=== PATIENT | female | born 1960 | race Caucasian/White ===

== ENCOUNTER 2023-02-23 20:06 | Emergency (ER) | payer OTHER ==
[2023-02-23 20:33] VITALS: TEMP 97.9
[2023-02-23] MEDS ORDERED: Sodium Chloride 0.9% 1000 ML 1,000 ML IV STA (20:49)
[2023-02-23] MEDS ORDERED: Zofran 4 MG/2 ML VIAL IV ONE (20:51)
[2023-02-23] MEDS ORDERED: SUBLIMAZE 100 MCG/2 ML IV ONE ×2 (20:51→22:04)
--- NOTE | 2023-02-23 20:55 | ERPHSYRPT ---
- History of Present Illness Time Seen by Provider: 02/23/23 20:09 Source: patient Exam Limitations: no limitations Patient Subjective Stated Complaint: cough, sob, aching, fatigue, headache, diarrhea Triage Nursing Assessment: pt ambulated into ER without diff. Pt c/o cough with thick green sputum, sob, headache, fatigue and body aches, diarrhea. This all started saturday but has gotten worse by today. Pt drove herself here to ER. Lungs clear, heart tones reg. No edema noted. Physician History: 62 years old female with history of tobacco abuse, COPD presented in the ER with chief complaint of flulike symptoms with cough congestion, body aches, fatigue tiredness and feeling dehydrated from multiple episodes of loose stool for over a week with associated lower abdominal pain moderate intensity with some q uestionable distention. Patient denies any chest pain or shortness of breath, has shortness of breath at her baseline which is not any worse than usual. Cough productive of yellow-green sputum moderate in amount. Denies any known sick contact. Patient reports she is not able to hold much down and feels dehydrated. Allergies/Adverse Reactions: No Known Drug Allergies Allergy (Unverified 02/23/23 20:33) Home Medications: ALPRAZolam 1 MG [Xanax 1 mg] 1 tab PO TID 02/23/23 [History] Ropinirole HCl 0.5 mg [Requip 0.5 MG] 1 - 2 tab PO HS 02/23/23 [History] Topiramate 25 mg PO BID 02/23/23 [History] Trazodone HCl 50 mg [Desyrel 50 mg] 1 tab PO DAILY 02/23/23 [History] buPROPion HCL [Wellbutrin Xl] 150 mg PO DAILY 02/23/23 [History] Hx Tetanus, Diphtheria Vaccination/Date Given: No Hx Influenza Vaccination/Date Given: No Hx Pneumococcal Vaccination/Date Given: No Immunizations Up to Date: No Travel Risk - International Travel Have you traveled outside of the country in past 3 weeks: No - Coronavirus Screening Are you exhibiting any of the following symptoms?: Yes Symptoms: Cough: New Onset, Shortness of Breath, Vomiting/Diarrhea, Loss of Taste or Smell, Headaches/Body Aches/Fatigue Close contact with a COVID-19 positive Pt in past 14-21 Days: No - Vaccine Status Have you recieved a Covid-19 vaccination: Yes Lap Runner: Moderna - Vaccination Dates Date of 2cond Vaccination (if applicable): . - Review of Systems Constitutional: Fatigue, Weakness Eyes: No Symptoms Ears, Nose, & Throat: No Symptoms Respiratory: Cough Cardiac: No Symptoms Abdominal/Gastrointestinal: Abdominal Pain, Diarrhea Genitourinary Symptoms: No Symptoms Musculoskeletal: Myalgias Skin: No Symptoms Neurological: Headache Endocrine: No Symptoms Hematologic/Lymphatic: No Symptoms Immunological/Allergic: No Symptoms - Past Medical History Pertinent Past Medical History: Yes Neurological History: Migraines ENT History: No Pertinent History Cardiac History: No Pertinent History Respiratory History: COPD, Emphysema Endocrine Medical History: No Pertinent History Musculoskeletal History: Arthritis, Fractures GI Medical History: Ulcer History: No Pertinent History Psycho-Social History: Anxiety, Depression, Panic Disorder Female Reproductive Disorders: Endometriosis - Past Surgical History Past Surgical History: Yes Neuro Surgical History: No Pertinent History Cardiac: No Pertinent History Respiratory: No Pertinent History Gastrointestinal: No Pertinent History Genitourinary: No Pertinent History Musculoskeletal: Orthopedic Surgery Female Surgical History: Hysterectomy, Tubal Ligation Other Surgical History: 4 surgeries to left wrist - Social History Smoking Status: Current every day smoker How long have you smoked: 45 yrs Exposure to second hand smoke: Yes Drug Use: none Patient Lives Alone: No - Nursing Vital Signs Nursing Vital Signs: Initial Vital Signs Temperature 97.9 F 02/23/23 20:08 Pulse Rate 62 02/23/23 20:08 Respiratory Rate 18 02/23/23 20:08 Blood Pressure 112/62 02/23/23 20:08 O2 Sat by Pulse Oximetry 97 02/23/23 20:08 Pain Scale Pain Intensity 7 - Physical Exam General Appearance: no apparent distress, alert Eye Exam: PERRL/EOMI Ears, Nose, Throat Exam: normal ENT inspection Neck Exam: normal inspection, non-tender, supple, full range of motion Respiratory Exam: normal breath sounds, lungs clear Cardiovascular Exam: regular rate/rhythm, normal heart sounds Gastrointestinal/Abdomen Exam: soft, normal bowel sounds, tenderness (Lower abdomen) Extremity Exam: normal inspection, normal range of motion Neurologic Exam: alert, oriented x 3, cooperative, counter top maker II-XII nml as tested, normal mood/affect, nml cerebellar function, nml station & gait, sensation nml Skin Exam: normal color SpO2 Interpretation: normal SpO2: 97 O2 Delivery: Room Air - Course EKG Interpreted by Me: RATE (61), Sinus Rhythm, NORMAL AXIS, NORMAL INTERVALS, Non-specific ST Changes Ordered Tests: Active Orders 24 hr Category Date Time Status EKG-ER Only STAT Care 02/23/23 20:51 Active IV Insertion STAT Care 02/23/23 20:51 Active NPO (ED) STAT Care 02/23/23 20:51 Active ABDOMEN AND PELVIS W/0 CONTRAS [CT] Stat Exams 02/23/23 20:51 Completed CHEST WITHOUT CONTRAST [CT] Stat Exams 02/23/23 20:50 Completed BLOOD CULTURE Stat Lab 02/23/23 21:10 Received CBC W DIFF Stat Lab 02/23/23 20:50 Completed CMP Stat Lab 02/23/23 20:50 Completed CULTURE,URINE Stat Lab 02/23/23 20:53 Received LIPASE Stat Lab 02/23/23 20:50 Completed Lactic Acid Stat Lab 02/23/23 21:00 Completed MAGNESIUM Stat Lab 02/23/23 20:50 Completed NT PRO BNPII Stat Lab 02/23/23 20:50 Completed TROPONIN Q4H Lab 02/23/23 20:50 Completed TROPONIN Q4H Lab 02/24/23 01:00 Ordered TROPONIN Q4H Lab 02/24/23 05:00 Ordered UA W/RFX UR CULTURE Stat Lab 02/23/23 20:53 Completed Medication Summary Discontinued Medications Generic Name Dose Route Start Last Admin Trade Name Claudia PRN Reason Stop Dose Admin Acetaminophen 1,000 mg 02/23/23 20:59 02/23/23 21:04 Acetaminophen 500 Mg Tablet PO 02/23/23 21:00 1,000 mg STAT STA Administration Acetaminophen Confirm 02/23/23 21:00 Acetaminophen 500 Mg Tablet Administered 02/23/23 21:01 Dose 1,000 mg .ROUTE .STK-MED ONE Fentanyl Citrate 50 mcg 02/23/23 20:51 02/23/23 21:28 Fentanyl Citrate 100 Mcg/2 Ml* Vial IV 02/23/23 20:52 Not Given STAT ONE Fentanyl Citrate 25 mcg 02/23/23 22:04 02/23/23 22:28 Fentanyl Citrate 100 Mcg/2 Ml* Vial IV 02/23/23 22:05 25 mcg STAT ONE Administration Fentanyl Citrate Confirm 02/23/23 22:08 Fentanyl Citrate 100 Mcg/2 Ml* Vial Administered 02/23/23 22:09 Dose 100 mcg .ROUTE .STK-MED ONE Sodium Chloride 1,000 mls @ 999 mls/hr 02/23/23 20:49 02/23/23 22:36 Sodium Chloride 0.9% 1000 Ml IV 02/23/23 21:49 Infused .Q1H1M STA Infusion Sodium Chloride Confirm 02/23/23 21:00 Sodium Chloride 0.9% 1000 Ml Administered 02/23/23 21:01 Dose 1,000 mls @ ud .ROUTE .STK-MED ONE Ceftriaxone Sodium/Dextrose 2 g in 50 mls @ 100 mls/hr 02/23/23 21:51 02/23/23 22:36 Rocephin 2 Gm-D5w 50ml Bag IV 02/23/23 22:20 Infused STAT STA Infusion Ceftriaxone Sodium/Dextrose Confirm 02/23/23 22:01 Rocephin 2 Gm-D5w 50ml Bag Administered 02/23/23 22:02 Dose 2 g in 50 mls @ ud IV .STK-MED ONE Ondansetron HCl 4 mg 02/23/23 20:51 02/23/23 22:28 Ondansetron Hcl 4 Mg/2 Ml Vial IV 02/23/23 20:52 4 mg STAT ONE Administration Ondansetron HCl Confirm 02/23/23 22:08 Ondansetron Hcl 4 Mg/2 Ml Vial Administered 02/23/23 22:09 Dose 4 mg .ROUTE .STK-MED ONE Lab/Rad Data: Laboratory Result Diagrams 02/23/23 20:50 02/23/23 20:50 Laboratory Results 02/23/23 02/23/23 02/23/23 Range/Units 21:10 21:00 20:53 WBC (4.0-10.5) x10^3/uL RBC (4.1-5.4) x10^6/uL Hgb (12.0-16.0) g/dL Hct (35-47) % MCV (78-100) fL MCH (26-32) pg MCHC (32-36) g/dL RDW (11.5-14.0) % Plt Count (150-450) x10^3/uL MPV (7.5-11.0) fL Gran % (36.0-66.0) % Immature Gran % (Auto) (0.00-0.4) % Nucleat RBC Rel Count (0.00-0.1) % Eos # (Auto) (0-0.5) x10^3/uL Immature Gran # (Auto) (0.00-0.03) x10^3u/L Absolute Lymphs (auto) (1.0-4.6) x10^3/uL Absolute Monos (auto) (0.0-1.3) x10^3/uL Absolute Nucleated RBC (0.00-0.01) x10^3u/L Lymphocytes % (24.0-44.0) % Monocytes % (0.0-12.0) % Eosinophils % (0.00-5.0) % Basophils % (0.0-0.4) % Absolute Granulocytes (1.4-6.9) x10^3/uL Basophils # (0-0.4) x10^3/uL Sodium (137-145) mmol/L Potassium (3.5-5.1) mmol/L Chloride (98-107) mmol/L Carbon Dioxide (22-30) mmol/L Anion Gap (5-15) MEQ/L BUN (7-17) mg/dL Creatinine (0.52-1.04) mg/dL Estimated GFR ML/MIN Glucose (74-106) mg/dL Lactic Acid 2.2 H (0.4-2.0) Calcium (8.4-10.2) mg/dL Magnesium (1.6-2.3) mg/dL Total Bilirubin (0.2-1.3) mg/dL AST (14-36) U/L ALT (0-35) U/L Alkaline Phosphatase (38-126) U/L Troponin I (0.000-0.034) ng/mL NT-Pro-B Natriuret Pep (<300) pg/mL Serum Total Protein (6.3-8.2) g/dL Albumin (3.5-5.0) g/dL Lipase (23-300) U/L Urine Color Yellow (Yellow) Urine Appearance Cloudy A (Clear) Urine pH 5.0 (4.6-8.0) Ur Specific [place] 1.025 (1.005-1.030) Urine Protein Negative (Negative) Urine Glucose (UA) Negative (Negative) mg/dL Urine Ketones Negative (Negative) Urine Blood Moderate A (Negative) Urine Nitrite Positive A (Negative) Urine Bilirubin Negative (Negative) Urine Urobilinogen 0.2 (0.2) mg/dL Ur Leukocyte Esterase Small A (Negative) U Hyaline Cast (Auto) NONE SEEN (0-2) /LPF Urine Microscopic RBC 6-10 A (0-5) /HPF Urine Microscopic WBC 51-100 A (0-5) /HPF Ur Epithelial Cells Few (None Seen) /HPF Urine Bacteria Many A (None Seen) /HPF Urine Culture Reflexed YES (NO) Influenza Type A Ag NEGATIVE (NEGATIVE) Influenza Type B Ag NEGATIVE (NEGATIVE) RSV (PCR) NEGATIVE (NEGATIVE) SARS-CoV-2 (PCR) NEGATIVE (NEGATIVE) 02/23/23 02/23/23 02/23/23 Range/Units 20:50 20:50 20:50 WBC 8.3 (4.0-10.5) x10^3/uL RBC 3.68 L (4.1-5.4) x10^6/uL Hgb 12.2 (12.0-16.0) g/dL Hct 37.9 (35-47) % MCV 103.0 H (78-100) fL MCH 33.2 H (26-32) pg MCHC 32.2 (32-36) g/dL RDW 13.1 (11.5-14.0) % Plt Count 277 (150-450) x10^3/uL MPV 9.1 (7.5-11.0) fL Gran % 41.9 (36.0-66.0) % Immature Gran % (Auto) 0.2 (0.00-0.4) % Nucleat RBC Rel Count 0.0 (0.00-0.1) % Eos # (Auto) 0.13 (0-0.5) x10^3/uL Immature Gran # (Auto) 0.02 (0.00-0.03) x10^3u/L Absolute Lymphs (auto) 4.06 (1.0-4.6) x10^3/uL Absolute Monos (auto) 0.55 (0.0-1.3) x10^3/uL Absolute Nucleated RBC 0.00 (0.00-0.01) x10^3u/L Lymphocytes % 48.9 H (24.0-44.0) % Monocytes % 6.6 (0.0-12.0) % Eosinophils % 1.6 (0.00-5.0) % Basophils % 0.8 (0.0-0.4) % Absolute Granulocytes 3.47 (1.4-6.9) x10^3/uL Basophils # 0.07 (0-0.4) x10^3/uL Sodium 140 (137-145) mmol/L Potassium 3.8 (3.5-5.1) mmol/L Chloride 108 H (98-107) mmol/L Carbon Dioxide 24 (22-30) mmol/L Anion Gap 12.0 (5-15) MEQ/L BUN 23 H (7-17) mg/dL Creatinine 1.22 H (0.52-1.04) mg/dL Estimated GFR 50.8 ML/MIN Glucose 98 (74-106) mg/dL Lactic Acid (0.4-2.0) Calcium 9.3 (8.4-10.2) mg/dL Magnesium 2.1 (1.6-2.3) mg/dL Total Bilirubin 0.40 (0.2-1.3) mg/dL AST 46 H (14-36) U/L ALT 37 H (0-35) U/L Alkaline Phosphatase 69 (38-126) U/L Troponin I < 0.012 (0.000-0.034) ng/mL NT-Pro-B Natriuret Pep 182 (<300) pg/mL Serum Total Protein 7.1 (6.3-8.2) g/dL Albumin 4.1 (3.5-5.0) g/dL Lipase 179 (23-300) U/L Urine Color (Yellow) Urine Appearance (Clear) Urine pH (4.6-8.0) Ur Specific [place] (1.005-1.030) Urine Protein (Negative) Urine Glucose (UA) (Negative) mg/dL Urine Ketones (Negative) Urine Blood (Negative) Urine Nitrite (Negative) Urine Bilirubin (Negative) Urine Urobilinogen (0.2) mg/dL Ur Leukocyte Esterase (Negative) U Hyaline Cast (Auto) (0-2) /LPF Urine Microscopic RBC (0-5) /HPF Urine Microscopic WBC (0-5) /HPF Ur Epithelial Cells (None Seen) /HPF Urine Bacteria (None Seen) /HPF Urine Culture Reflexed (NO) Influenza Type A Ag (NEGATIVE) Influenza Type B Ag (NEGATIVE) RSV (PCR) (NEGATIVE) SARS-CoV-2 (PCR) (NEGATIVE) - Progress Progress: improved, re-examined Progress Note: 02/23/23 22:52 62 years old is evaluated in the ER for complaints of generalized weakness fatigue tiredness, cough and diarrhea with some abdominal pain. She is given fluids and symptomatic treatment, on reevaluation she is feeling much better. Workup showed normal white count, chemistries showed mildly elevated transamin ases and creatinine and a lactate of 2.2. EKG is normal sinus rhythm with no acute ischemic changes and negative troponins. Does have UTI and given a dose of Rocephin in here. Patient has negative flu COVID and RSV. I have obtained CT chest which is negative for pneumonia or any other acute finding. CT abdomen pelvis is negative as well. Does have moderate stool load but no acute findings. CT chest did show left lingular segment nodule which needs further evaluation outpatient. I have discussed the results of workup with patient and family and plan of treatment with antibiotics for UTI. Also outpatient follow- up for lung nodule which patient reports "I am aware of it and it is total wastage of time." She is advised to have outpatient follow-up as it could be malignant and with her history of smoking it is a concern. She agreed to have outpatient follow-up. I do not think she needs any other workup and is being discharged with outpatient follow-up. Discussed signs symptoms of worsening needing return to ER which she seems understanding. Stable for discharge. 02/23/23 22:58 Counseled pt/family regarding: lab results, diagnosis, need for follow-up, rad results Medical Desision Making - Diagnostic Testing Diagnostic test were ordered, analyzed, and reviewed by me: Yes Radiological Interpretation: Reviewed by me, Teleradiologist Report - Risk of complications The pt has a mod risk of morbidity or mortality based on: Need for prescription drug management - Departure Departure Disposition: Home Clinical Impression: Generalized weakness, Acute UTI (urinary tract infection), Lung nodule Condition: Stable Critical Care Time: No Referrals: BAYLEE EVANS MD [ACTIVE STAFF] - Follow up/PCP as directed RACHEL MANNING MD [Primary Care Provider] - Follow up with PCP 2 days Instructions: Urinary Tract Infection, Adult (DC), Generalized Weakness (DC) Additional Instructions: Drink plenty of fluids to keep yourself well-hydrated. Take Tylenol/ibuprofen as needed. Follow-up with primary care for reevaluation. You have a lung nodule which needs further evaluation to make sure it is not cancerous. Return to ER for any worsening. Prescriptions: Cefpodoxime Proxetil 200 mg [Vantin 200 mg] 200 mg PO BID 7 Days #14 tablet
[2023-02-23] MEDS ORDERED: TYLENOL EXTRA STRENGTH 500 MG PO STA (20:59)
[2023-02-23] MEDS ORDERED: TYLENOL EXTRA STRENGTH 500 MG ONE (21:00)
[2023-02-23] MEDS ORDERED: Sodium Chloride 0.9% 1000 ML 1,000 ML ONE (21:00)
[2023-02-23 21:03] LABS: Absolute Neutrophil Ct (ANC) 3.47 x10^3/uL (1.4-6.9); BASOPHIL % 0.8 % (0.0-0.4); Basophil (Absolute #) 0.07 x10^3/uL (0-0.4); Eosinophil % 1.6 % (0.00-5.0); Eosinophil (Absolute #) 0.13 x10^3/uL (0-0.5); Hematocrit 37.9 % (35-47); Hemoglobin 12.2 g/dL (12.0-16.0); IMMATURE GRAN # 0.02 x10^3u/L (0.00-0.03); IMMATURE GRAN % 0.2 % (0.00-0.4); Lymphocyte (Absolute #) 4.06 x10^3/uL (1.0-4.6); Lymphocytes % 48.9 % (24.0-44.0); Mean Corpuscular Hemoglobin 33.2 pg (26-32); Mean Corpuscular Hgb Concent. 32.2 g/dL (32-36); Mean Platelet Volume 9.1 fL (7.5-11.0); Monocyte (Absolute #) 0.55 x10^3/uL (0.0-1.3); Monocytes % 6.6 % (0.0-12.0); Neutrophil % 41.9 % (36.0-66.0); Platelet Count 277 x10^3/uL (150-450); Red Blood Count 3.68 x10^6/uL (4.1-5.4); Red Cell Distribution Width 13.1 % (11.5-14.0); White Blood Count 8.3 x10^3/uL (4.0-10.5)
[2023-02-23 21:18] LABS: ALBUMIN 4.1 g/dL (3.5-5.0); BILIRUBIN,TOTAL 0.4 mg/dL (0.2-1.3); Calcium 9.3 mg/dL (8.4-10.2); Creatinine 1 1.22 mg/dL (0.52-1.04); EST GLOMERULAR FILTRATION RATE 50.8 ML/MIN; MAGNESIUM 2.1 mg/dL (1.6-2.3); Potassium 3.8 mmol/L (3.5-5.1); Total Protein 7.1 g/dL (6.3-8.2)
[2023-02-23 21:23] LABS: Appearance Cloudy (Clear); Bacteria Many /HPF (None Seen); Bilirubin Negative (Negative); Blood Moderate (Negative); Epithelial Cells Few /HPF (None Seen); Glucose, Urine Negative (Negative); Hyaline Casts NONE SEEN /LPF (0-2); Ketones Negative (Negative); Leukocyte Esterase Small (Negative); Nitrite Positive (Negative); Protein,Urine Dip Negative (Negative); Specific Gravity 1.025 (1.005-1.030); Urobilinogen 0.2 mg/dL (0.2); WBC 51-100 /HPF (0-5)
[2023-02-23 21:47] LABS: ADD URINE CULTURE? YES (NO)
[2023-02-23] MEDS ORDERED: ROCEPHIN 2 Gm-D5w 50ML BAG** 2 G/50 ML IVPB IV STA (21:51)
[2023-02-23 21:58] LABS: INFLUENZA A NEGATIVE (NEGATIVE); INFLUENZA B NEGATIVE (NEGATIVE); RESPIRATORY SYNCTIAL VIRUS NEGATIVE (NEGATIVE); SARS-CoV-2 Xpert Express NEGATIVE (NEGATIVE)
[2023-02-23] MEDS ORDERED: ROCEPHIN 2 Gm-D5w 50ML BAG** 2 G/50 ML IVPB IV ONE (22:01)
[2023-02-23] MEDS ORDERED: SUBLIMAZE 100 MCG/2 ML ONE (22:08)
[2023-02-23] MEDS ORDERED: Zofran 4 MG/2 ML VIAL ONE (22:08)
--- NOTE | 2023-02-23 22:29 | XRAY ---
CLINICAL HISTORY:cough COMPARISON:None TECHNIQUE:Contiguous 3.[address] images of the chest were acquired without contrast. Coronal and sagittal reconstructions were obtained. FINDINGS: A 6mm ground-glass nodule was noted in the upper lingular segment of the left upper lobe, high risk as per Fleischner Society guidelines. Both lungs are hyperinflated. Extensive centrilobular emphysematous changes were noted in both upper lobes causing architectural distortion at apices with bullous lesions. Mild paraseptal emphysematous changes also noted in both lungs. A few 2-4mm calcified nodules noted in the right lower lobe with subcentimetric calcified right hilar nodes, sequelae to previous infection likely. Fibro- atelectatic changes noted in the posterior aspect of both lower lobes, more so on the right side. No free or encysted pleural effusion. Heart size is normal, and there is no pericardial effusion. The thoracic aorta shows atherosclerotic changes with calcified plaques. The thoracic spine shows degenerative changes. There is no definite mass lesion in the chest wall. Please refer to the CT abdomen report for respective findings. IMPRESSION: 1. A 6mm ground-glass nodule in lingular segment of the left upper lobe, is high risk as per Fleischner Society guidelines. Recommended short-interval follow-up 2. Advanced obstructive pulmonary disease 3. Few 2-4mm calcified nodules in the right lower lobe with subcentimetric calcified right hilar nodes, sequelae to previous infection likely. 4. Fibro-atelectatic changes in the posterior aspect of both lower lobes, more so on the right side. Electronically Signed by: Noemy Nuñez MD. (02/23/2023 22:25:58 EST)
--- NOTE | 2023-02-23 22:39 | XRAY ---
CLINICAL HISTORY:lower abd pain /diarrhea COMPARISON:None. TECHNIQUE:CT scan of the abdomen and pelvis was performed without IV contrast.Coronal and sagittal reconstructive images were also obtained. FINDINGS: Abdomen: The liver is of average size. No focal or diffuse parenchymal abnormality. The intrahepatic biliary radicals and the bile ducts are normal. The gallbladder is minimally and superior horner and homogeneous opacification distended. There is no evidence of wall thickening/ pericholecystic collection. The spleen, pancreas, adrenal glands are unremarkable. The kidneys are normal in size and shape. No calculi or hydronephrosis. Few calcific foci seen at upper pole of left kidney, appear to be vascular calcification. The entire large bowel is loaded with fecal matter. Stomach is also moderately distended with food particles. The visualized small bowel loops are unremarkable. There is no evidence of significant enlargement of the mesenteric or retroperitoneal lymph nodes. The abdominal aorta shows atherosclerotic changes with calcified plaques. Pelvis: The urinary bladder is unremarkable. The rectosigmoid colon is unremarkable. The uterus is not visualized. No evidence of pelvic lymphadenopathy. The lumbar spine shows degenerative changes with mild grade I retrolisthesis of L5 over S1 IMPRESSION: 1. No significant acute abnormality detected in CT abdomen and pelvis, within the limitations of plain study 2. Fecal loaded distended large bowel with moderate distention of stomach Electronically Signed by: Noemy Nuñez MD. (02/23/2023 22:34:20 EST)
[2023-02-23 22:58] VITALS: O2SAT 97
[2023-02-23 23:03] VITALS: BP 95/52; PULSE 78; RESP 17
== END 2023-02-23 23:10 | disposition home or self-care (01) ==
LOC: ED 20:06
DX: N39.0 Urinary tract infection, site not specified (principal); R53.1 Weakness; R91.1 Solitary pulmonary nodule; R05.9 Cough, unspecified; M79.10 Myalgia, unspecified site; R53.83 Other fatigue; R19.7 Diarrhea, unspecified; R10.30 Lower abdominal pain, unspecified; Z79.899 Other long term (current) drug therapy; Z72.0 Tobacco use
CPT/HCPCS: 0241U; 36000; 36415; 71250; 74176; 80053; 81001; 83605; 83690; 83735; 83880; 84484; 85025; 87040; 87086; 93005; 96374; 96375; 99284; 87077; 87186; J0696; J2405; J3010; A9270-GY

== ENCOUNTER 2023-08-24 11:33 | Emergency (ER) | payer OTHER ==
[2023-08-24 12:04] VITALS: TEMP 97.5
[2023-08-24] MEDS ORDERED: Zofran 4 MG/2 ML VIAL ONE (12:09)
--- NOTE | 2023-08-24 12:09 | ERPHSYRPT ---
- History of Present Illness Time Seen by Provider: 08/24/23 12:00 Source: patient Exam Limitations: no limitations Patient Subjective Stated Complaint: Tailbone pain and severe diarrhea Triage Nursing Assessment: Patient reports to ER with complaints of pain to tailbone region and diarrhea. Patient was able to ambulate per self back to room without assistive device. Patient states this pain started 2-3 days ago. Patient is rating pain 9/10 at this time and denies taking anything for pain prior to coming to ER. Patient denies injuring affected area but states she lives in a small camper and believes she may have slept on something. Swelling and small bruise noted to coccyx region, area tender with palpation. Patient also reports that she started having diarrhea yesterday which she describes as "severe". Patient denies nausea, vomitting, and abdominal pain. Bowel sounds active x 4 quads and no tenderness noted. Patient reports that she is eating and drinking without difficulty. Patient denies shortness of breath and presents with easy respirations and O2 sats 97% on room air. Physician History: 63yo f presents via private vehicle for pain and discoloration around her sacrum. Pt reports she sits on the couch all day, does not ambulate a lot. Pt denies any recent falls, does endorse diarrhea x 3 episodes that started yesterday, also had a brief and quickly resolving episode of syncope after standing up off the toilet following an episode of diarrhea. Pt reports sinus congestion and drainage as well. Pt states she has been eating at her baseline and reports good intake of water. Pt denies any fevers, cp, soa, NIXON, blurry vision. Timing/Duration: day(s) (2) Severity: mild Modifying Factors: Improves With: nothing Associated Symptoms: syncope, No nausea, No vomiting, No abdominal pain, No shortness of breath, No diaphoresis, No cough, No chills, No chest pain, No fever Allergies/Adverse Reactions: No Known Drug Allergies Allergy (Verified 08/24/23 11:43) Home Medications: ALPRAZolam 1 MG [Xanax 1 mg] 1 tab PO TID PRN PRN 02/23/23 [History] Ropinirole HCl 0.5 mg [Requip 0.5 MG] 1 - 2 tab PO HS PRN PRN 02/23/23 [History] Topiramate 25 mg PO BID 02/23/23 [History] Trazodone HCl 50 mg [Desyrel 50 mg] 1 tab PO HS 02/23/23 [History] buPROPion HCL [Wellbutrin Xl] 150 mg PO DAILY 02/23/23 [History] Duloxetine HCl 20 mg PO DAILY 08/24/23 [History] Methocarbamol [Robaxin] 500 mg PO QID PRN PRN 08/24/23 [History] Sumatriptan Succinate 25 mg [Imitrex 25 MG] 100 mg PO DAILY PRN 08/24/23 [History] Hx Tetanus, Diphtheria Vaccination/Date Given: No Hx Influenza Vaccination/Date Given: No Hx Pneumococcal Vaccination/Date Given: No Immunizations Up to Date: Yes Travel Risk - International Travel Have you traveled outside of the country in past 3 weeks: No - Emerging Infectious Disease Are you exhibiting symptoms associated with any current EIDs: No - Review of Systems Constitutional: No Symptoms Respiratory: No Symptoms Cardiac: No Symptoms Abdominal/Gastrointestinal: Diarrhea, No Abdominal Pain, No Nausea, No Vomiting Skin: Skin Lesions (early sacral wound w/ some sweling) Neurological: No Symptoms - Past Medical History Pertinent Past Medical History: Yes Neurological History: Migraines ENT History: No Pertinent History Cardiac History: No Pertinent History Respiratory History: COPD, Emphysema Endocrine Medical History: No Pertinent History Musculoskeletal History: Arthritis, Fractures GI Medical History: Ulcer History: No Pertinent History Psycho-Social History: Anxiety, Depression, Panic Disorder Female Reproductive Disorders: Endometriosis - Past Surgical History Past Surgical History: Yes Neuro Surgical History: No Pertinent History Cardiac: No Pertinent History Respiratory: No Pertinent History Gastrointestinal: No Pertinent History Genitourinary: No Pertinent History Musculoskeletal: Orthopedic Surgery Female Surgical History: Hysterectomy, Tubal Ligation Other Surgical History: 4 surgeries to left wrist - Social History Smoking Status: Current every day smoker How long have you smoked: 45 yrs Exposure to second hand smoke: Yes Drug Use: none Patient Lives Alone: No - Social Determinants of Health Will the patient participate in the screening: Yes Do you worry about a steady place to live?: No Do you have any problems with any of the following?: No known problems In the past 12 months,have you had to go without utilities?: No Transportation Issues: No Has anyone in your support network made you feel unsafe?: No Have you or anyone in your house had to go without enough: No - Nursing Vital Signs Nursing Vital Signs: Initial Vital Signs Temperature 97.5 F 08/24/23 11:48 Pulse Rate 76 08/24/23 11:48 Respiratory Rate 18 08/24/23 11:48 Blood Pressure 95/67 08/24/23 11:48 O2 Sat by Pulse Oximetry 97 08/24/23 11:48 Pain Scale Pain Intensity 5 - Physical Exam General Appearance: no apparent distress, alert Respiratory Exam: normal breath sounds, lungs clear, airway intact, No chest tenderness, No respiratory distress Cardiovascular Exam: regular rate/rhythm, normal heart sounds, normal peripheral pulses Gastrointestinal/Abdomen Exam: soft, normal bowel sounds, No tenderness, No distention, No guarding Back Exam: other (3cm diameter area of mild induration, slightly raised, non- fluctuant, non-bullous skin overlying sacrum/coccyx) Neurologic Exam: alert, oriented x 3, cooperative Skin Exam: normal color SpO2 Interpretation: normal SpO2: 97 O2 Delivery: Room Air - Course EKG Interpreted by Me: RATE (49), Sinus Lee, Other (qtcb 414, pr 116, not suggestive of acute ischemia) Ordered Tests: Active Orders 24 hr Category Date Time Status EKG-ER Only STAT Care 08/24/23 12:27 Active ABDOMEN AND PELVIS W CONTRAST [CT] Stat Exams 08/24/23 12:04 Completed CBC W DIFF Stat Lab 08/24/23 12:33 Completed CMP Stat Lab 08/24/23 12:33 Completed CULTURE,URINE Stat Lab 08/24/23 12:33 Received UA W/RFX UR CULTURE Stat Lab 08/24/23 12:33 Completed Medication Summary Generic Name Dose Route Start Last Admin Trade Name Freq PRN Reason Stop Dose Admin Hydrocodone Bitart/Acetaminophen 2 tablet 08/24/23 16:57 Hydrocodone/Acetamin 10-325 Mg Tablet PO 08/29/23 16:56 Q4H PRN PRN PAIN Discontinued Medications Generic Name Dose Route Start Last Admin Trade Name Freq PRN Reason Stop Dose Admin Hydromorphone HCl 0.5 mg 08/24/23 13:39 08/24/23 13:44 Hydromorphone 1 Mg/1ml Inj IV 08/24/23 13:40 0.5 mg STAT ONE Administration Hydromorphone HCl Confirm 08/24/23 13:42 Hydromorphone 1 Mg/1ml Inj Administered 08/24/23 13:43 Dose 1 mg .ROUTE .STK-MED ONE Hydromorphone HCl 0.5 mg 08/24/23 17:00 Hydromorphone 1 Mg/1ml Inj IV 08/24/23 17:01 STAT ONE Sodium Chloride 1,000 mls @ 999 mls/hr 08/24/23 12:04 08/24/23 13:29 Sodium Chloride 0.9% 1000 Ml IV 08/24/23 13:04 Infused .Q1H1M STA Infusion Sodium Chloride Confirm 08/24/23 12:10 Sodium Chloride 0.9% 1000 Ml Administered 08/24/23 12:11 Dose 1,000 mls @ ud .ROUTE .STK-MED ONE Ceftriaxone Sodium 1 gm in 100 mls @ 200 mls/hr 08/24/23 13:39 08/24/23 14:21 Rocephin 1 Gm / 100 Ml Nacl IV 08/24/23 14:08 Infused STAT ONE Infusion Ceftriaxone Sodium Confirm 08/24/23 13:43 Rocephin 1 Gm / 100 Ml Nacl Administered 08/24/23 13:44 Dose 1 gm in 100 mls @ ud IV .STK-MED ONE Morphine Sulfate 1 mg 08/24/23 12:04 08/24/23 12:12 Morphine Sulfate 2 Mg/Ml Inj IV 08/24/23 12:05 1 mg STAT ONE Administration Morphine Sulfate Confirm 08/24/23 12:10 Morphine Sulfate 2 Mg/Ml Inj Administered 08/24/23 12:11 Dose 2 mg .ROUTE .STK-MED ONE Ondansetron HCl Confirm 08/24/23 12:09 Ondansetron Hcl 4 Mg/2 Ml Vial Administered 08/24/23 12:10 Dose 4 mg .ROUTE .STK-MED ONE Ondansetron HCl 4 mg 08/24/23 12:11 08/24/23 12:12 Ondansetron Hcl 4 Mg/2 Ml Vial IV 08/24/23 12:12 4 mg STAT ONE Administration Lab/Rad Data: Laboratory Result Diagrams 08/24/23 12:33 08/24/23 12:33 Laboratory Results 08/24/23 08/24/23 08/24/23 Range/Units 12:33 12:33 12:33 WBC 8.5 (3.98-10.04) x10^3/uL RBC 3.82 L (3.93-5.22) x10^6/uL Hgb 12.6 (11.2-15.7) g/dL Hct 37.8 (34.1-44.9) % MCV 99.0 H (79.4-94.8) fL MCH 33.0 H (25.6-32.2) pg MCHC 33.3 (32.2-35.5) g/dL RDW 12.7 (11.7-14.4) % Plt Count 266 (182-369) x10^3/uL MPV 9.3 L (9.4-12.3) fL Gran % 55.8 (34.0-71.1) % Immature Gran % (Auto) 0.2 (0.001-0.429) % Nucleat RBC Rel Count 0.0 (0.00-0.2) % Eos # (Auto) 0.17 (0.04-0.36) x10^3/uL Immature Gran # (Auto) 0.02 (0.001-0.031) x10^3u/L Absolute Lymphs (auto) 3.06 (1.18-3.74) x10^3/uL Absolute Monos (auto) 0.43 (0.24-0.86) x10^3/uL Absolute Nucleated RBC 0.00 (0.00-0.012) x10^3u/L Lymphocytes % 36.1 (19.3-51.7) % Monocytes % 5.1 (4.7-12.5) % Eosinophils % 2.0 (0.7-5.8) % Basophils % 0.8 (0.1-1.2) % Absolute Granulocytes 4.73 (1.56-6.13) x10^3/uL Basophils # 0.07 (0.01-0.08) x10^3/uL Sodium 139 (135-145) mmol/L Potassium 4.0 (3.5-5.1) mmol/L Chloride 110 H (98-107) mmol/L Carbon Dioxide 18 L (22-30) mmol/L Anion Gap 14.4 (5-15) MEQ/L BUN 13 (7-17) mg/dL Creatinine 0.77 (0.52-1.04) mg/dL Estimated GFR 87.7 ML/MIN Glucose 95 (74-106) mg/dL Calcium 9.2 (8.4-10.2) mg/dL Total Bilirubin 0.40 (0.2-1.3) mg/dL AST 24 (14-36) U/L ALT 14 (0-35) U/L Alkaline Phosphatase 78 (38-126) U/L Serum Total Protein 6.8 (6.3-8.2) g/dL Albumin 4.1 (3.5-5.0) g/dL Urine Color (Yellow) Urine Appearance (Clear) Urine pH (4.6-8.0) Ur Specific [place] (1.005-1.030) Urine Protein (Negative) Urine Glucose (UA) (Negative) mg/dL Urine Ketones (Negative) Urine Blood (Negative) Urine Nitrite (Negative) Urine Bilirubin (Negative) Urine Urobilinogen (0.2) mg/dL Ur Leukocyte Esterase (Negative) U Hyaline Cast (Auto) (0-2) /LPF Urine Microscopic RBC (0-5) /HPF Urine Microscopic WBC (0-5) /HPF Ur Epithelial Cells (None Seen) /HPF Urine Bacteria (None Seen) /HPF Urine Culture Reflexed (NO) Influenza Type A Ag NEGATIVE (NEGATIVE) Influenza Type B Ag NEGATIVE (NEGATIVE) RSV (PCR) NEGATIVE (NEGATIVE) SARS-CoV-2 (PCR) NEGATIVE (NEGATIVE) 08/24/23 Range/Units 12:33 WBC (3.98-10.04) x10^3/uL RBC (3.93-5.22) x10^6/uL Hgb (11.2-15.7) g/dL Hct (34.1-44.9) % MCV (79.4-94.8) fL MCH (25.6-32.2) pg MCHC (32.2-35.5) g/dL RDW (11.7-14.4) % Plt Count (182-369) x10^3/uL MPV (9.4-12.3) fL Gran % (34.0-71.1) % Immature Gran % (Auto) (0.001-0.429) % Nucleat RBC Rel Count (0.00-0.2) % Eos # (Auto) (0.04-0.36) x10^3/uL Immature Gran # (Auto) (0.001-0.031) x10^3u/L Absolute Lymphs (auto) (1.18-3.74) x10^3/uL Absolute Monos (auto) (0.24-0.86) x10^3/uL Absolute Nucleated RBC (0.00-0.012) x10^3u/L Lymphocytes % (19.3-51.7) % Monocytes % (4.7-12.5) % Eosinophils % (0.7-5.8) % Basophils % (0.1-1.2) % Absolute Granulocytes (1.56-6.13) x10^3/uL Basophils # (0.01-0.08) x10^3/uL Sodium (135-145) mmol/L Potassium (3.5-5.1) mmol/L Chloride (98-107) mmol/L Carbon Dioxide (22-30) mmol/L Anion Gap (5-15) MEQ/L BUN (7-17) mg/dL Creatinine (0.52-1.04) mg/dL Estimated GFR ML/MIN Glucose (74-106) mg/dL Calcium (8.4-10.2) mg/dL Total Bilirubin (0.2-1.3) mg/dL AST (14-36) U/L ALT (0-35) U/L Alkaline Phosphatase (38-126) U/L Serum Total Protein (6.3-8.2) g/dL Albumin (3.5-5.0) g/dL Urine Color Yellow (Yellow) Urine Appearance Turbid A (Clear) Urine pH 7.0 (4.6-8.0) Ur Specific [place] 1.015 (1.005-1.030) Urine Protein Negative (Negative) Urine Glucose (UA) Negative (Negative) mg/dL Urine Ketones Negative (Negative) Urine Blood NHT (Negative) Urine Nitrite Positive A (Negative) Urine Bilirubin Negative (Negative) Urine Urobilinogen 1.0 A (0.2) mg/dL Ur Leukocyte Esterase Small A (Negative) U Hyaline Cast (Auto) NONE SEEN (0-2) /LPF Urine Microscopic RBC 6-10 A (0-5) /HPF Urine Microscopic WBC 11-20 A (0-5) /HPF Ur Epithelial Cells Few (None Seen) /HPF Urine Bacteria Many A (None Seen) /HPF Urine Culture Reflexed YES (NO) Influenza Type A Ag (NEGATIVE) Influenza Type B Ag (NEGATIVE) RSV (PCR) (NEGATIVE) SARS-CoV-2 (PCR) (NEGATIVE) - Progress Progress: re-examined Progress Note: 08/24/23 16:16 CT abd/pelvis showed: 1. In comparison with the previous study dated 02/23/2023, soft tissue thickening and subcutaneous edematous changes are seen with the mild adjacent fat stranding in the boogie-coccygeal region inferiorly, measuring up to [id number]. A minimal underlying collection could not be excluded. Correlation with enhanced MRI is advised. 2. Questionable minimal cortical disruption is noted in the middle coccygeal vertebra, which could be traumatic. MRI is advised. 3. Stable anterior angulation of the lower coccyx is noted, representing a normal variant as a type III coccyx. 4. Otherwise, unremarkable study and stable findings. plan to admit for further w/u of sacral swelling, IV abx for UTI, pain control hospitalist Dr Sharp stating that pt does not meet admission criteria will discharge home w/ course of keflex and pain medication instructed to follow up w/ PCP Dr Manning this week to consider MRI evaluation of sacral region recommend avoiding pressure on sacrum when possible, keep region clean and dry return to ED if: pain becomes unbearable, swelling begins to drain fluid or bleed, develop NIXON, blurry vision, fevers that do not resolve w/ tylenol, develop change in mental status 08/24/23 17:02 Counseled pt/family regarding: lab results, diagnosis, need for follow-up, rad results, smoking cessation Medical Desision Making - Diagnostic Testing Diagnostic test were ordered, analyzed, and reviewed by me: Yes Radiological Interpretation: Reviewed by me, Teleradiologist Report - Risk of complications Low Risk: Low risk of morbidity from additional dx testing or treatment - Departure Departure Disposition: Home Clinical Impression: Wound of sacral region Qualifiers: Encounter type: initial encounter Qualified Code(s): S31.000A - Unspecified open wound of lower back and pelvis without penetration into retroperitoneum, initial encounter UTI (urinary tract infection) Qualifiers: Urinary tract infection type: acute cystitis Hematuria presence: without hematuria Qualified Code(s): N30.00 - Acute cystitis without hematuria Condition: Stable Critical Care Time: No Referrals: RACHEL MANNING MD [Primary Care Provider] - Follow up/PCP as directed Additional Instructions: will discharge home w/ course of keflex and pain medication instructed to follow up w/ PCP Dr Manning this week to consider MRI evaluation of sacral region recommend avoiding pressure on sacrum when possible, keep region clean and dry return to ED if: pain becomes unbearable, swelling begins to drain fluid or bleed, develop NIXON, blurry vision, fevers that do not resolve w/ tylenol, develop change in mental status Prescriptions: Cephalexin Mh 500 mg [Keflex 500 mg] 500 mg PO BID 7 Days #14 cap
[2023-08-24] MEDS ORDERED: MORPHINE SULFATE 2 MG INJ ONE (12:10)
[2023-08-24] MEDS ORDERED: Sodium Chloride 0.9% 1000 ML 1,000 ML ONE (12:10)
[2023-08-24] MEDS: Zofran 4 MG/2 ML VIAL IV ONE (12:12)
[2023-08-24] MEDS: MORPHINE SULFATE 2 MG INJ IV ONE (12:12)
[2023-08-24] MEDS: Sodium Chloride 0.9% 1000 ML 1,000 ML IV STA (12:13)
[2023-08-24 12:47] LABS: Absolute Neutrophil Ct (ANC) 4.73 x10^3/uL (1.56-6.13); BASOPHIL % 0.8 % (0.1-1.2); Basophil (Absolute #) 0.07 x10^3/uL (0.01-0.08); Eosinophil (Absolute #) 0.17 x10^3/uL (0.04-0.36); Hematocrit 37.8 % (34.1-44.9); Hemoglobin 12.6 g/dL (11.2-15.7); IMMATURE GRAN # 0.02 x10^3u/L (0.001-0.031); IMMATURE GRAN % 0.2 % (0.001-0.429); Lymphocyte (Absolute #) 3.06 x10^3/uL (1.18-3.74); Lymphocytes % 36.1 % (19.3-51.7); Mean Corpuscular Hgb Concent. 33.3 g/dL (32.2-35.5); Mean Platelet Volume 9.3 fL (9.4-12.3); Monocyte (Absolute #) 0.43 x10^3/uL (0.24-0.86); Monocytes % 5.1 % (4.7-12.5); Neutrophil % 55.8 % (34.0-71.1); Platelet Count 266 x10^3/uL (182-369); Red Blood Count 3.82 x10^6/uL (3.93-5.22); Red Cell Distribution Width 12.7 % (11.7-14.4); White Blood Count 8.5 x10^3/uL (3.98-10.04)
[2023-08-24 12:58] LABS: Appearance Turbid (Clear); Bacteria Many /HPF (None Seen); Bilirubin Negative (Negative); Blood NHT (Negative); Epithelial Cells Few /HPF (None Seen); Glucose, Urine Negative (Negative); Hyaline Casts NONE SEEN /LPF (0-2); Ketones Negative (Negative); Leukocyte Esterase Small (Negative); Nitrite Positive (Negative); Protein,Urine Dip Negative (Negative); Specific Gravity 1.015 (1.005-1.030)
[2023-08-24 13:02] LABS: ADD URINE CULTURE? YES (NO)
[2023-08-24 13:03] LABS: ALBUMIN 4.1 g/dL (3.5-5.0); ANION GAP 14.4 MEQ/L (5-15); BILIRUBIN,TOTAL 0.4 mg/dL (0.2-1.3); Calcium 9.2 mg/dL (8.4-10.2); Creatinine 1 0.77 mg/dL (0.52-1.04); EST GLOMERULAR FILTRATION RATE 87.7 ML/MIN; Total Protein 6.8 g/dL (6.3-8.2)
[2023-08-24 13:28] LABS: INFLUENZA A NEGATIVE (NEGATIVE); INFLUENZA B NEGATIVE (NEGATIVE); RESPIRATORY SYNCTIAL VIRUS NEGATIVE (NEGATIVE); SARS-CoV-2 Xpert Express NEGATIVE (NEGATIVE)
[2023-08-24] MEDS ORDERED: Hydromorphone 1 mg/ml Injection ONE ×2 (13:42→17:05)
[2023-08-24] MEDS ORDERED: ROCEPHIN 1 GM / 100 ML NaCl 1 GM/100 ML IVPB IV ONE (13:43)
[2023-08-24] MEDS: Hydromorphone 1 mg/ml Injection IV ONE ×2 (13:44→17:05)
[2023-08-24] MEDS: ROCEPHIN 1 GM / 100 ML NaCl 1 GM/100 ML IVPB IV ONE (13:48)
--- NOTE | 2023-08-24 15:54 | XRAY ---
CLINICAL HISTORY: pain/swelling over coccyx COMPARISON: CT dated 02/23/2023. TECHNIQUE: CT scan of the abdomen and pelvis was performed with IV contrast. Coronal and sagittal reconstructive images were also obtained. One of the following dose reduction techniques was utilized for this exam.Automated exposure control, adjustment of the mA and/or kV according to patient size, and use of iterative reconstruction. FINDINGS: Anterior angulation of the coccyx is noted, representing a normal variant as a type III coccyx. There is a minimal cortical disruption noted in the middle coccygeal vertebra, There is a cortical disruption noted in the middle coccygeal vertebra to correlate with the patient's history to rule out previous trauma. There is soft tissue thickening and subcutaneous edematous changes with the mild adjacent fat stranding noted in the boogie-coccygeal region inferiorly, measuring up to [id number]. A minimal underlying collection could not be excluded. Correlation with enhanced MRI is advised. The liver measures 175 mm in height. No focal or diffuse parenchymal abnormality. The intrahepatic biliary radicals and the bile ducts are normal. The gallbladder is normal. There is no evidence of wall thickening/pericholecystic collection. The spleen, pancreas, and adrenal glands are unremarkable. The kidneys are normal in size and shape. No calculi or hydronephrosis. Few calcific foci were seen at the upper pole of the left kidney, likely due to vascular calcification. The visualized small and large bowel loops are unremarkable. There is no evidence of significant enlargement of the mesenteric or retroperitoneal lymph nodes. The abdominal aorta shows atherosclerotic changes with calcified plaques. Appendix is normal. The urinary bladder is unremarkable. The rectosigmoid colon is unremarkable. No evidence of pelvic lymphadenopathy. The lumbar spine shows degenerative changes with mild grade I retrolisthesis of L5 over S1 IMPRESSION: 1. In comparison with the previous study dated 02/23/2023, soft tissue thickening and subcutaneous edematous changes are seen with the mild adjacent fat stranding in the boogie-coccygeal region inferiorly, measuring up to [id number]. A minimal underlying collection could not be excluded. Correlation with enhanced MRI is advised. 2. Questionable minimal cortical disruption is noted in the middle coccygeal vertebra, which could be traumatic. MRI is advised. 3. Stable anterior angulation of the lower coccyx is noted, representing a normal variant as a type III coccyx. 4. Otherwise, unremarkable study and stable findings. [facility] ER was called at [phone] at 02:45 PM [employer], 08/24/2023 and results were verbally communicated to Harleen Read Electronically Signed by: Noemy Nuñez MD. (08/24/2023 15:50:17 EDT)
[2023-08-24 16:19] VITALS: O2SAT 97
[2023-08-24 17:02] VITALS: BP 115/65; PULSE 51; RESP 15
[2023-08-24] MEDS ORDERED: NORCO 10-325 MG ONE (17:04)
[2023-08-24] MEDS: NORCO 10-325 MG PO PRN (17:06)
== END 2023-08-24 17:24 | disposition home or self-care (01) ==
LOC: ED 11:33
DX: S31.000A Unspecified open wound of lower back and pelvis without penetration into retroperitoneum, initial encounter (principal); N30.00 Acute cystitis without hematuria; R19.7 Diarrhea, unspecified; Z79.899 Other long term (current) drug therapy; Z72.0 Tobacco use
CPT/HCPCS: 0241U; 36000; 36415; 74177; 80053; 81001; 85025; 87077; 87086; 87186; 93005; 96374; 96375; 99284; J0696; J1170; J2270; J2405; A9270-GY

== ENCOUNTER 2023-08-27 18:14 | Emergency (ER) | payer OTHER ==
[2023-08-27 18:37] VITALS: BP 90/52; TEMP 97.9; O2SAT 97
[2023-08-27] MEDS ORDERED: ZOFRAN ODT 4 MG ONE (18:39)
[2023-08-27] MEDS ORDERED: Hydromorphone 1 mg/ml Injection ONE (18:39)
[2023-08-27] MEDS: ZOFRAN ODT 4 MG PO ONE (18:40)
[2023-08-27] MEDS: Hydromorphone 1 mg/ml Injection IM ONE (18:40)
--- NOTE | 2023-08-27 18:51 | ERPHSYRPT ---
- History of Present Illness Time Seen by Provider: 08/27/23 18:40 Source: patient Exam Limitations: no limitations Patient Subjective Stated Complaint: Low back pain Triage Nursing Assessment: Patient ambulated back to ED and transferred self to bed. Patient A+O X3. Patient's skin pink, warm and dry. Patient complains of low back pain. Patient was seen in ER on 08/24/2023 and was told to follow up with PCP for MRI. Patient states she is working on getting into PCP. Patient states she is out of pain meds. Patient complains of pain to low back 10/21. Physician History: 63-year-old female presents to our ED for evaluation of sacral pain. Patient was in our ED for the same just a few days ago. CT scan reveals inflammatory changes around the sacrum. Possible infection. Patient was discharged home on antibiotics. Patient states that she feels much better however she ran out of pain medication and is requesting additional pain medication. No systemic manifestations of infection. She currently has a follow-up with her primary care physician for an MRI in 2 days. Patient otherwise feels well. No interval trauma. No fever. No systemic manifestations. Patient voices no other complaints or concerns at this time. Portions of this note were created with voice recognition technology. There may be grammatical, spelling, punctuation or sound alike errors Timing/Duration: day(s) Severity: moderate (3 days) Modifying Factors: Improves With: other (Palpation) Associated Symptoms: denies symptoms Allergies/Adverse Reactions: No Known Drug Allergies Allergy (Verified 08/27/23 18:26) Home Medications: ALPRAZolam 1 MG [Xanax 1 mg] 1 tab PO TID PRN PRN 02/23/23 [History] Ropinirole HCl 0.5 mg [Requip 0.5 MG] 1 - 2 tab PO HS PRN PRN 02/23/23 [History] Topiramate 25 mg PO BID 02/23/23 [History] Trazodone HCl 50 mg [Desyrel 50 mg] 1 tab PO HS 02/23/23 [History] buPROPion HCL [Wellbutrin Xl] 150 mg PO DAILY 02/23/23 [History] Duloxetine HCl 20 mg PO DAILY 08/24/23 [History] Methocarbamol [Robaxin] 500 mg PO QID PRN PRN 08/24/23 [History] Sumatriptan Succinate 25 mg [Imitrex 25 MG] 100 mg PO DAILY PRN 08/24/23 [History] Hx Tetanus, Diphtheria Vaccination/Date Given: No Hx Influenza Vaccination/Date Given: No Hx Pneumococcal Vaccination/Date Given: No Immunizations Up to Date: Yes Travel Risk - International Travel Have you traveled outside of the country in past 3 weeks: No - Emerging Infectious Disease Are you exhibiting symptoms associated with any current EIDs: No - Review of Systems Constitutional: No Symptoms, No Fever, No Chills Eyes: No Symptoms Ears, Nose, & Throat: No Symptoms Respiratory: No Symptoms, No Cough, No Dyspnea Cardiac: No Symptoms, No Chest Pain, No Edema, No Syncope Abdominal/Gastrointestinal: No Symptoms, No Abdominal Pain, No Nausea, No Vomiting, No Diarrhea Genitourinary Symptoms: No Symptoms, No Dysuria Musculoskeletal: No Symptoms, No Back Pain, No Neck Pain Skin: No Symptoms, No Rash Neurological: No Symptoms, No Dizziness, No Focal Weakness, No Sensory Changes Psychological: No Symptoms Endocrine: No Symptoms Hematologic/Lymphatic: No Symptoms Immunological/Allergic: No Symptoms All Other Systems: Reviewed and Negative - Past Medical History Pertinent Past Medical History: Yes Neurological History: Migraines ENT History: No Pertinent History Cardiac History: No Pertinent History Respiratory History: COPD, Emphysema Endocrine Medical History: No Pertinent History Musculoskeletal History: Arthritis, Fractures GI Medical History: Ulcer History: No Pertinent History Psycho-Social History: Anxiety, Depression, Panic Disorder Female Reproductive Disorders: Endometriosis - Past Surgical History Past Surgical History: Yes Neuro Surgical History: No Pertinent History Cardiac: No Pertinent History Respiratory: No Pertinent History Gastrointestinal: No Pertinent History Genitourinary: No Pertinent History Musculoskeletal: Orthopedic Surgery Female Surgical History: Hysterectomy, Tubal Ligation Other Surgical History: 4 surgeries to left wrist - Social History Smoking Status: Current every day smoker How long have you smoked: 45 yrs Exposure to second hand smoke: Yes Drug Use: none Patient Lives Alone: No - Social Determinants of Health Will the patient participate in the screening: Yes Do you worry about a steady place to live?: No Do you have any problems with any of the following?: No known problems In the past 12 months,have you had to go without utilities?: No Transportation Issues: No Has anyone in your support network made you feel unsafe?: No Have you or anyone in your house had to go without enough: No - Nursing Vital Signs Nursing Vital Signs: Initial Vital Signs Temperature 97.9 F 08/27/23 18:29 Blood Pressure 90/52 08/27/23 18:29 O2 Sat by Pulse Oximetry 97 08/27/23 18:29 Pain Scale Pain Intensity 7 - Physical Exam General Appearance: no apparent distress, alert Eye Exam: PERRL/EOMI, eyes nml inspection Ears, Nose, Throat Exam: normal ENT inspection, moist mucous membranes Neck Exam: normal inspection, non-tender, supple, full range of motion Respiratory Exam: normal breath sounds, lungs clear, airway intact, No respiratory distress Cardiovascular Exam: regular rate/rhythm, normal heart sounds, normal peripheral pulses Gastrointestinal/Abdomen Exam: soft, normal bowel sounds, No tenderness, No mass Pelvic Exam: other (Tenderness to palpation over the sacrum. Overlying soft tissue intact. No open or draining lesions. No cellulitis.) Back Exam: normal inspection, normal range of motion, No CVA tenderness, No vertebral tenderness Extremity Exam: normal inspection, normal range of motion, pelvis stable Neurologic Exam: alert, oriented x 3, cooperative, normal mood/affect, nml cerebellar function, nml station & gait, sensation nml, No motor deficits Skin Exam: normal color, warm, dry, No rash Lymphatic Exam: No adenopathy SpO2 Interpretation: normal SpO2: 97 O2 Delivery: Room Air - Course Nursing assessment & vital signs reviewed: Yes Ordered Tests: Medication Summary Discontinued Medications Generic Name Dose Route Start Last Admin Trade Name Claudia PRN Reason Stop Dose Admin Hydromorphone HCl 1 mg 08/27/23 18:37 08/27/23 18:40 Hydromorphone 1 Mg/1ml Inj IM 08/27/23 18:38 1 mg STAT ONE Administration Hydromorphone HCl Confirm 08/27/23 18:39 Hydromorphone 1 Mg/1ml Inj Administered 08/27/23 18:40 Dose 1 mg .ROUTE .STK-MED ONE Ondansetron HCl 4 mg 08/27/23 18:36 08/27/23 18:40 Zofran 4 Mg/Udtablet Orally Disintegrating PO 08/27/23 18:37 4 mg STAT ONE Administration Ondansetron HCl Confirm 08/27/23 18:39 Zofran 4 Mg/Udtablet Orally Disintegrating Administered 08/27/23 18:40 Dose 4 mg .ROUTE .[facility] ONE - Progress Progress: improved Progress Note: 63-year-old female presents to our ED as she ran out of pain medicine. Patient was in our 80s a few days ago for the same. Patient currently has a follow-up with her primary care doctor and will be scheduled for an MRI. No interval injury or trauma. Physical exam essentially nonremarkable. No indication for further imaging studies. Patient received an IM dose of Dilaudid. A prescription for Ostrander forwarded to patient's pharmacy. Patient agrees to follow-up with her primary care doctor as planned. Patient patient ready for discharge pain significantly improved. Patient voices no other complaints or concerns at this time. Portions of this note were created with voice recognition technology. There may be grammatical, spelling, punctuation or sound alike errors Complexity problem addressed is moderate acute complicated. No critical care time. Complex of data reviewed is low. Diagnosis made based on history and physical examination. No specialized testing ordered or indicated. Risk of complication and or risk of morbidity/mortality patient management is high. Patient received IM Dilaudid. A prescription for Ostrander forwarded to patient's pharmacy. Vital stable. Time spent to discharge patient approximately 20 minutes. Plan of care established for shared decision making. No social determinants of health present impede follow-up. Portions of this note were created with voice recognition technology. There may be grammatical, spelling, punctuation or sound alike errors 08/27/23 18:57 Counseled pt/family regarding: diagnosis, need for follow-up - Departure Departure Disposition: Home Clinical Impression: Coccygeal contusion Condition: Stable Critical Care Time: No Referrals: RACHEL MANNING MD [Primary Care Provider] - Follow up/PCP as directed Instructions: Low Back Pain ED Additional Instructions: Discharge/Care Plan ANTONETTE ALVAREZ was seen on 08/27/23 in the Emergency Room. The patient was counseled regarding Diagnosis,Lab results, Imaging studies, need for follow up and when to return to the Emergency Room. Prescriptions given: Discharge Note I have spoken with the patient and/or caregivers. I have explained the patient's condition, diagnosis and treatment plan based on the information available to me at this time. I have answered the patient's and/or caregiver's questions and addressed any concerns. The patient and/or caregivers have as good understanding of the patient's diagnosis, condition and treatment plan as can be expected at this point. The vital signs have been stable. The patient's condition is stable and appropriate for discharge from the emergency department. The patient will pursue further outpatient evaluation with the primary care physician or other designated or consulting physician as outlined in the discharge instructions. The patient and/or caregivers are agreeable to this plan of care and follow-up instructions have been explained in detail. The patient and/or caregivers have received these instruction. The patient/and or caregivers are aware that any significant change in condition or worsening of symptoms should prompt an immediate return to this or the closest emergency department or call 911. Prescriptions: Hydrocodone/APAP 5/325 [Ostrander 5/325 mg] 1 each PO Q6H PRN PRN #10 tablet MDD 4 PRN Reason: Pain
== END 2023-08-27 19:05 | disposition home or self-care (01) ==
LOC: ED 18:14
DX: S30.0XXA Contusion of lower back and pelvis, initial encounter (principal); Z79.891 Long term (current) use of opiate analgesic; Z79.899 Other long term (current) drug therapy; Z72.0 Tobacco use
CPT/HCPCS: 96372; 99283; J1170; Q0162